=== PATIENT | female | born 1945 | race Caucasian/White ===

== ENCOUNTER 2020-09-23 22:59 | Emergency (ER) | payer OTHER, MEDICARE, SELFPAY ==
[~2020-09-23] VITALS: Ht 154.9 cm; Wt 67.1 kg
[~2020-09-23 22:59] MED LIST: ACET325T53 PO; CALMO120 TP; DICY10CA59 PO; HYDR-3924 PO; SYN50 PO; ZOLP5TAB2 PO
--- NOTE | 2020-09-23 23:05 | NUR ---
DR. ROBERTS AT BEDSIDE TO EVALUATE PT STATUS
[2020-09-23] MEDS ORDERED: MORPHINE 4 MG/ML INJ. SYRINGE IVP ONE (23:15)
[2020-09-23] MEDS ORDERED: ONDANSETRON HCL 4 MG/2 ML VIAL IVP ONE (23:15)
[2020-09-23] MEDS ORDERED: NACL 0.9% 1,000 ML IV ONE (23:15)
[2020-09-23 23:17] VITALS: BP_SYST 189
--- NOTE | 2020-09-23 23:17 | NUR ---
PT PLACED IN ED FASTTRACK CHAIR 3
--- NOTE | 2020-09-23 23:33 | NUR ---
PT TAKEN TO CT VIA WHEELCHAIR
[2020-09-24] MEDS ORDERED: ONDANSETRON HCL 4 MG/2 ML VIAL ONE (00:19)
[2020-09-24] MEDS ORDERED: KETOROLAC TROMETHAMINE 30 MG VIAL IVP ONE (00:30)
[2020-09-24 00:39] LABS: BASOPHILS # (AUTO) 0.1 K/uL (0.0-0.2); BASOPHILS % (AUTO) 1.1 % (0.0-2.0); EOSINOPHILS # (AUTO) 0.1 K/uL (0.0-0.4); EOSINOPHILS % (AUTO) 1.4 % (0.0-4.0); HEMATOCRIT 38.6 % (36-48); LYMPHOCYTES # (AUTO) 1.8 K/uL (1.0-5.5); LYMPHOCYTES % (AUTO) 18.9 % (20.5-51.5); MEAN CORPUSCULAR HEMOGLOBIN 28 pg (27-31); MEAN CORPUSCULAR HGB CONC 34 % (32-36); MEAN CORPUSCULAR VOLUME 84 fL (79.0-98.0); MONOCYTES # (AUTO) 0.8 K/uL (0.0-1.0); MONOCYTES % (AUTO) 8.7 % (1.7-9.3); NEUTROPHILS # (AUTO) 6.6 K/uL (1.8-7.7); NEUTROPHILS % (AUTO) 69.9 % (40.0-70.0); PLATELET COUNT (AUTO) 338 K/uL (130-430); RED BLOOD CELL COUNT(AUTO) 4.59 MIL/uL (4.2-6.2); WHITE BLOOD COUNT (AUTO) 9.4 K/uL (4.8-10.8)
[2020-09-24] MEDS ORDERED: metroNIDAZOLE 500 mg/NS 100 ML IV ONE (00:45)
[2020-09-24] MEDS ORDERED: LEVOFLOXACIN 500 MG/D5W 100 ML IV ONE (00:45)
[2020-09-24 00:47] LABS: ANION GAP 13 (5-15); CALCIUM 9.2 mg/dL (8.4-11.0); CHLORIDE 101 mmol/L (98-107); CREATININE 0.87 mg/dL (0.55-1.30); GLUCOSE 134 mg/dL (70-99); POTASSIUM 3.7 mmol/L (3.5-5.1); SODIUM SERUM 139 mmol/L (136-145); UREA NITROGEN, BLOOD 15 mg/dL (8-21)
--- NOTE | 2020-09-24 00:48 | NUR ---
PT AMBULATED TO RESTROOM
--- NOTE | 2020-09-24 00:50 | NUR ---
PT SITTING QUIETLY IN ED FASTTRACK CHAIR 3
[2020-09-24 00:53] LABS: ALBUMIN 3.3 g/dL (3.4-4.8); ASPARTATE AMINOTRANSFERASE 178 U/L (10-37); LIPASE 98 U/L (73-393)
--- NOTE | 2020-09-24 01:01 | NUR ---
SECON IV PLACED 20 G LEFT WRIST TO BEGIN SECOND IV ANTIBIOTIC ONE ATTEMPT GOOD BLOOD RETURN AND FLUSH
[2020-09-24 01:21] LABS: BILIRUBIN,URINE NEGATIVE (NEGATIVE); BLOOD, URINE 1+ (NEGATIVE); CLARITY/URINE CLEAR (CLEAR); COLOR,URINE YELLOW (YELLOW); GLUCOSE,URINE NEGATIVE (NEGATIVE); KETONES,URINE NEGATIVE (NEGATIVE); LEUKOCYTE ESTERASE ,URINE TRACE (NEGATIVE); NITRITE, URINE NEGATIVE (NEGATIVE); PROTEIN URINE NEGATIVE (NEGATIVE)
[2020-09-24 01:27] LABS: ALANINE AMINOTRANSFERASE 36 U/L (12-78)
[2020-09-24 01:49] LABS: BACTERIA,URINE RARE /HPF (None Seen); WBC,URINE 0-3 /HPF (0-3)
[2020-09-24] MEDS ORDERED: METR500T PO (02:09)
[2020-09-24] MEDS ORDERED: LEVO500T89 PO (02:09)
[2020-09-24 02:21] VITALS: BP_SYST 160
--- NOTE | 2020-09-24 02:21 | NUR ---
Patient given written and verbal discharge instructions and verbalizes understanding. ER MD ROBERTS discussed with patient the results and treatment provided. Patient in stable condition. ID arm band removed. IV catheter removed intact and dressing applied, no active bleeding. Rx of FLAGYLL AND LEVAQUIN given. Patient educated on pain management and to follow up with PMD. Pain Scale 4/10. Opportunity for questions provided and answered. Medication side effect fact sheet provided.
== END 2020-09-24 02:21 | disposition home or self-care (01) ==
LOC: SED 22:59
DX: K57.92 Diverticulitis of intestine, part unspecified, without perforation or abscess without bleeding (principal); I10 Essential (primary) hypertension; E07.9 Disorder of thyroid, unspecified; K21.9 Gastro-esophageal reflux disease without esophagitis; Z86.73 Personal history of transient ischemic attack (TIA), and cerebral infarction without residual deficits; Z85.42 Personal history of malignant neoplasm of other parts of uterus; Z90.49 Acquired absence of other specified parts of digestive tract; Z79.899 Other long term (current) drug therapy; Z88.0 Allergy status to penicillin; Z88.1 Allergy status to other antibiotic agents; Z88.2 Allergy status to sulfonamides; Z88.6 Allergy status to analgesic agent; Z88.8 Allergy status to other drugs, medicaments and biological substances; Z20.828 Contact with and (suspected) exposure to other viral communicable diseases
CPT/HCPCS: 36415; 74176; 76376; 81000; 80053; 83605; 83690; 85025; 87040; 87426; 96361; 96365; 96368; 96375; 99284; J1885; J1956; J2270; J2405 ×2; J3490; J7030